=== PATIENT | male | born 1950 | race Caucasian/White ===

== ENCOUNTER 2021-06-12 09:19 | Outpatient (CLI) | payer MEDICARE, BC ==
[2021-06-12] VITALS (7 sets, daily range): BP systolic 141–164; BP diastolic 92–100
[~2021-06-12] VITALS: Ht 180.3 cm; Wt 105.2 kg
[2021-06-12] MEDS ORDERED: regadenoson 0.4mg/5ml syringe IV PRN (10:15)
[2021-06-12] MEDS ORDERED: nitroGLYCERIN 0.4mg SUBLingual tab SL PRN (10:15)
[2021-06-12] MEDS ORDERED: normal saline 500ml IV soln 500 ML IV ONE (10:15)
[2021-06-12] MEDS ORDERED: aminophylline 250mg/10ml inj. IV PRN (10:15)
== END 2021-06-12 23:59 | disposition home or self-care (01) ==
LOC: RAD 09:19
PROVIDERS: ATTEND Internal Medicine Cardiovascular Disease
DX: I08.0 Rheumatic disorders of both mitral and aortic valves (principal); R07.9 Chest pain, unspecified; I48.91 Unspecified atrial fibrillation
CPT/HCPCS: 78452; 93017; 93306; A9500; J0280; J2785; J7040

== ENCOUNTER 2021-06-19 07:05 | Day surgery (SDC) | payer MEDICARE, BC ==
[2021-06-18 15:25] LABS: BASOPHILS % (AUTO) 0.9 % (0-1); EOSINOPHILS # (AUTO) 0.1 X10'3 (0-0.9); EOSINOPHILS % (AUTO) 1.5 % (0-6); HEMATOCRIT 42.5 % (42.0-52.0); HEMOGLOBIN 14.6 g/dl (14.0-17.9); LYMPHOCYTES # (AUTO) 1.9 X10'3 (1.1-4.8); LYMPHOCYTES % (AUTO) 32.1 % (21-51); MEAN CORPUSCULAR HEMOGLOBIN 32.9 PG (27.0-31.0); MEAN CORPUSCULAR HGB CONC 34.4 g/dL (33.0-36.5); MEAN CORPUSCULAR VOLUME 95.8 FL (78-98); MONOCYTES # (AUTO) 0.5 X10'3 (0-0.9); MONOCYTES % (AUTO) 9.4 % (2-12); NEUTROPHILS # (AUTO) 3.2 X10'3 (1.8-7.7); NEUTROPHILS % (AUTO) 56.1 % (42-75); PLATELET COUNT 206 X10'3 (140-440); RED BLOOD COUNT 4.43 X10'6 (4.70-6.10); RED CELL DISTRIBUTION WIDTH 12.8 % (11.5-14.5); WHITE BLOOD COUNT 5.8 X10'3 (4.5-11.0)
[2021-06-18 15:30] LABS: ALBUMIN 3.3 G/DL (3.4-5.0); ANION GAP 9 (8-16); BLOOD UREA NITROGEN 25 MG/DL (7-18); BUN/CREATININE RATIO 22.3 (5.4-32.0); CALCIUM 8.4 MG/DL (8.5-10.1); CHLORIDE 109 MMOL/L (99-107); CREATININE 1.12 MG/DL (0.60-1.10); GLUCOSE 97 MG/DL (70-104); POTASSIUM 4.3 MMOL/L (3.5-5.1); SODIUM 146 MMOL/L (135-145); TOTAL CARBON DIOXIDE 27.6 MMOL/L (24-32); eGFR 65 ML/MIN
[2021-06-19] VITALS (15 sets, daily range): BP systolic 128–159; BP diastolic 82–112
[~2021-06-19] VITALS: Ht 185.4 cm; Wt 107.7 kg
[2021-06-19] MEDS ORDERED: morphine 10mg/ml inj. IV ONE (07:30)
[2021-06-19] MEDS ORDERED: diphenhydrAMINE 25mg capsule PO ONE (07:30)
[2021-06-19] MEDS ORDERED: MIDAZolam 1mg/ml 10ml vial IV ONE (07:30)
[2021-06-19] MEDS ORDERED: atropine 0.1mg/ml 10ml syringe IV ONE (07:30)
[2021-06-19] MEDS ORDERED: LORazepam 0.5 MG tablet PO ONE (07:30)
[2021-06-19] MEDS ORDERED: FLEC100T PO (07:32)
[2021-06-19] MEDS ORDERED: ASPI-10 PO (07:32)
[2021-06-19] MEDS ORDERED: OMEG1CAP2 PO (07:32)
[2021-06-19] MEDS ORDERED: CARV6.253 PO (07:32)
[2021-06-19] MEDS ORDERED: APIX5TAB3 PO (07:32)
[2021-06-19] MEDS ORDERED: amiodarone 150mg/dext, iso-os 100 ML IV ONE (09:20)
== END 2021-06-19 12:40 | disposition home or self-care (01) ==
LOC: SSTAY O 07:05
PROVIDERS: ATTEND Internal Medicine Cardiovascular Disease
DX: I48.0 Paroxysmal atrial fibrillation (principal); I25.10 Atherosclerotic heart disease of native coronary artery without angina pectoris; I10 Essential (primary) hypertension; E78.49 Other hyperlipidemia; G47.30 Sleep apnea, unspecified; Z79.82 Long term (current) use of aspirin; Z79.899 Other long term (current) drug therapy; Z87.891 Personal history of nicotine dependence; Z83.3 Family history of diabetes mellitus
CPT/HCPCS: 36415; 80048; 85025; 85610; 92960; 93005; 94760; 94799; J2250; J2270

== ENCOUNTER 2021-08-14 08:56 | Day surgery (SDC) | payer MEDICARE, BC ==
[2021-08-13 12:25] LABS: BASOPHILS % (AUTO) 0.8 % (0-1); EOSINOPHILS # (AUTO) 0.1 X10'3 (0-0.9); EOSINOPHILS % (AUTO) 2.1 % (0-6); HEMATOCRIT 43.2 % (42.0-52.0); HEMOGLOBIN 14.5 g/dl (14.0-17.9); LYMPHOCYTES # (AUTO) 1.5 X10'3 (1.1-4.8); LYMPHOCYTES % (AUTO) 30.6 % (21-51); MEAN CORPUSCULAR HEMOGLOBIN 32.7 PG (27.0-31.0); MEAN CORPUSCULAR HGB CONC 33.6 g/dL (33.0-36.5); MEAN CORPUSCULAR VOLUME 97.3 FL (78-98); MEAN PLATELET VOLUME 8.2 FL (7.4-10.4); MONOCYTES # (AUTO) 0.5 X10'3 (0-0.9); MONOCYTES % (AUTO) 9.7 % (2-12); NEUTROPHILS # (AUTO) 2.8 X10'3 (1.8-7.7); NEUTROPHILS % (AUTO) 56.8 % (42-75); PLATELET COUNT 145 X10'3 (140-440); RED BLOOD COUNT 4.44 X10'6 (4.70-6.10); RED CELL DISTRIBUTION WIDTH 13.4 % (11.5-14.5); WHITE BLOOD COUNT 4.9 X10'3 (4.5-11.0)
[2021-08-13 12:35] LABS: ALBUMIN 3.8 G/DL (3.4-5.0); ANION GAP 10 (8-16); BLOOD UREA NITROGEN 20 MG/DL (7-18); BUN/CREATININE RATIO 18.9 (5.4-32.0); CALCIUM 8.2 MG/DL (8.5-10.1); CHLORIDE 108 MMOL/L (99-107); CREATININE 1.06 MG/DL (0.60-1.10); GLUCOSE 81 MG/DL (70-104); POTASSIUM 4.3 MMOL/L (3.5-5.1); SODIUM 145 MMOL/L (135-145); TOTAL CARBON DIOXIDE 27.5 MMOL/L (24-32); eGFR 69 ML/MIN
[2021-08-13 12:39] LABS: PARTIAL THROMBOPLASTIN TIME 27 SECONDS (22-32)
[2021-08-14] VITALS (8 sets, daily range): BP systolic 117–176; BP diastolic 67–105
[~2021-08-14] VITALS: Ht 185.4 cm; Wt 109.9 kg
[~2021-08-14 08:56] MED LIST: APIX5TAB3 PO; ASPI-10 PO; CARV6.253 PO; FLEC100T PO; OMEG1CAP2 PO
[2021-08-14] MEDS ORDERED: normal saline 1,000 ML IV SCH (09:15)
[2021-08-14] MEDS ORDERED: LIDOcaine/PRILOcaine 5gm cream TP ONE (09:15)
[2021-08-14] MEDS ORDERED: diphenhydrAMINE 25mg capsule PO PRN (09:15)
[2021-08-14] MEDS ORDERED: LORazepam 0.5 MG tablet PO PRN (09:15)
[2021-08-14] MEDS ORDERED: verapamil 2.5 mg/ml inj IV ONE (10:00)
[2021-08-14] MEDS ORDERED: nitroGLYCERIN-Tridil 50MG/D5W 250 ML IV ONE (10:00)
[2021-08-14] MEDS ORDERED: LIDOcaine 1% (10mg/ml)w/preservative injection 20ml MDV ONE (10:01)
[2021-08-14] MEDS ORDERED: heparin 1,000unit/ml 10ml vial 10 ML ONE (10:01)
[2021-08-14] MEDS ORDERED: midazolam 1 mg/ML 2ml injection ONE (10:01)
[2021-08-14] MEDS ORDERED: iohexol 350MG/ML 100ml bottle IV ONE (10:01)
[2021-08-14] MEDS ORDERED: iohexol 350 MG/ML 50ML vial IV ONE (10:01)
[2021-08-14] MEDS ORDERED: fentaNYL/PF 50MCG/1 ML 2ML syringe ONE (10:01)
[2021-08-14 12:11] LABS: ISTAT HGB ART 13.3 g/dl (14.0-18.0); ISTAT Hct ART 39 %PCV (42-52); ISTAT O2 SATURATION ARTERIAL 98 % (95-98); ISTAT SOURCE ART
[2021-08-14 12:20] LABS: ISTAT Hct MIX 40 %PCV (42-52); ISTAT O2 SATURATION MIX VENOUS 70 % (60-80); ISTAT SOURCE BLNK
== END 2021-08-14 18:00 | disposition home or self-care (01) ==
LOC: SSTAY O 08:56
PROVIDERS: ATTEND Internal Medicine Cardiovascular Disease
DX: R94.39 Abnormal result of other cardiovascular function study (principal); R06.02 Shortness of breath; I25.10 Atherosclerotic heart disease of native coronary artery without angina pectoris; I10 Essential (primary) hypertension; E78.5 Hyperlipidemia, unspecified; I48.0 Paroxysmal atrial fibrillation; F12.90 Cannabis use, unspecified, uncomplicated; Z87.891 Personal history of nicotine dependence; Z79.01 Long term (current) use of anticoagulants; Z79.899 Other long term (current) drug therapy; Z79.82 Long term (current) use of aspirin
CPT/HCPCS: 36415; 80048; 82803; 85014; 85025; 85610; 85730; 93005; 93460; 99152; 99153; A6258; C1751; C1769; C1894; J1644; J2001; J2250; J3010; J7030; Q0163; Q9967; A4620; A5120; J3490

== ENCOUNTER 2022-02-19 07:08 | Day surgery (SDC) | payer MEDICARE, BC ==
[2022-02-18 13:41] LABS: BASOPHILS % (AUTO) 0.6 % (0-1); EOSINOPHILS # (AUTO) 0.1 X10'3 (0-0.9); EOSINOPHILS % (AUTO) 1.6 % (0-6); HEMATOCRIT 43.1 % (42.0-52.0); HEMOGLOBIN 14.6 g/dl (14.0-17.9); LYMPHOCYTES # (AUTO) 1.4 X10'3 (1.1-4.8); LYMPHOCYTES % (AUTO) 25.7 % (21-51); MEAN CORPUSCULAR HEMOGLOBIN 32.4 PG (27.0-31.0); MEAN CORPUSCULAR VOLUME 95.2 FL (78-98); MEAN PLATELET VOLUME 8.3 FL (7.4-10.4); MONOCYTES # (AUTO) 0.5 X10'3 (0-0.9); MONOCYTES % (AUTO) 8.9 % (2-12); NEUTROPHILS # (AUTO) 3.5 X10'3 (1.8-7.7); NEUTROPHILS % (AUTO) 63.2 % (42-75); PLATELET COUNT 160 X10'3 (140-440); RED BLOOD COUNT 4.52 X10'6 (4.70-6.10); RED CELL DISTRIBUTION WIDTH 13.3 % (11.5-14.5); WHITE BLOOD COUNT 5.6 X10'3 (4.5-11.0)
[2022-02-18 13:47] LABS: ALBUMIN 3.6 G/DL (3.4-5.0); ANION GAP 8 (8-16); BLOOD UREA NITROGEN 22 MG/DL (7-18); BUN/CREATININE RATIO 18.5 (5.4-32.0); CHLORIDE 107 MMOL/L (99-107); CREATININE 1.19 MG/DL (0.60-1.10); GLUCOSE 97 MG/DL (70-104); POTASSIUM 4.4 MMOL/L (3.5-5.1); SODIUM 141 MMOL/L (135-145); eGFR 61 ML/MIN
[2022-02-19] VITALS (27 sets, daily range): BP systolic 116–151; BP diastolic 79–105
[~2022-02-19] VITALS: Ht 185.4 cm; Wt 107.0 kg
[2022-02-19] MEDS ORDERED: morphine 10mg/ml inj. IV ONE (07:35)
[2022-02-19] MEDS ORDERED: atropine 0.1mg/ml 10ml syringe IV ONE (07:35)
[2022-02-19] MEDS ORDERED: LORazepam 0.5 MG tablet PO ONE (07:35)
[2022-02-19] MEDS ORDERED: amiodarone 150mg/dext, iso-os 100 ML IV ONE (07:35)
[2022-02-19] MEDS ORDERED: MIDAZolam 1mg/ml 10ml vial IV ONE (07:35)
[2022-02-19] MEDS ORDERED: diphenhydrAMINE 25mg capsule PO ONE (07:35)
--- NOTE | 2022-02-19 11:00 | NUR ---
No versed given at this time
--- NOTE | 2022-02-19 11:02 | NUR ---
no versed given at this time
== END 2022-02-19 13:25 | disposition home or self-care (01) ==
LOC: SSTAY O 07:08
PROVIDERS: ATTEND Internal Medicine Cardiovascular Disease
DX: I48.0 Paroxysmal atrial fibrillation (principal); I10 Essential (primary) hypertension; I25.10 Atherosclerotic heart disease of native coronary artery without angina pectoris; E78.49 Other hyperlipidemia; G47.30 Sleep apnea, unspecified; F12.90 Cannabis use, unspecified, uncomplicated; Z87.891 Personal history of nicotine dependence; Z79.899 Other long term (current) drug therapy; Z83.3 Family history of diabetes mellitus
CPT/HCPCS: 36415; 80048; 85025; 85610; 92960; 93005; 94799; J0282; J2250; J2274; Q0163

== ENCOUNTER 2023-10-21 10:12 | Day surgery (SDC) | payer MEDICARE, BC ==
[2023-10-20 12:45] LABS: BASOPHILS % (AUTO) 0.4 % (0-1); EOSINOPHILS # (AUTO) 0.1 X10'3 (0-0.9); EOSINOPHILS % (AUTO) 1.9 % (0-6); HEMATOCRIT 43.6 % (42.0-52.0); HEMOGLOBIN 14.9 g/dl (14.0-17.9); LYMPHOCYTES # (AUTO) 1.4 X10'3 (1.1-4.8); LYMPHOCYTES % (AUTO) 21.6 % (21-51); MEAN CORPUSCULAR HEMOGLOBIN 33.2 PG (27.0-31.0); MEAN CORPUSCULAR HGB CONC 34.1 g/dL (33.0-36.5); MEAN CORPUSCULAR VOLUME 97.3 FL (78-98); MEAN PLATELET VOLUME 7.9 FL (7.4-10.4); MONOCYTES # (AUTO) 0.4 X10'3 (0-0.9); NEUTROPHILS # (AUTO) 4.4 X10'3 (1.8-7.7); NEUTROPHILS % (AUTO) 69.1 % (42-75); PLATELET COUNT 151 X10'3 (140-440); RED BLOOD COUNT 4.48 X10'6 (4.70-6.10); RED CELL DISTRIBUTION WIDTH 13.6 % (11.5-14.5); WHITE BLOOD COUNT 6.4 X10'3 (4.5-11.0)
[2023-10-20 13:15] LABS: ALBUMIN 3.4 G/DL (3.4-5.0); ANION GAP 8 (8-16); BLOOD UREA NITROGEN 18 MG/DL (7-18); CALCIUM 8.8 MG/DL (8.5-10.1); CHLORIDE 107 MMOL/L (99-107); CREATININE 1.06 MG/DL (0.60-1.10); GLUCOSE 95 MG/DL (70-104); POTASSIUM 4.4 MMOL/L (3.5-5.1); SODIUM 141 MMOL/L (135-145); TOTAL CARBON DIOXIDE 25.7 MMOL/L (24-32); eGFR 69 ML/MIN
[2023-10-20 13:21] LABS: PROTHROMBIN TIME 10.4 SECONDS (9.0-12.0)
[~2023-10-21] VITALS: Ht 185.4 cm; Wt 110.9 kg
[2023-10-21] VITALS (23 sets, daily range): BP systolic 106–165; BP diastolic 66–116; PULSE 56–89; RESP 12; TEMP 98.2; O2SAT 95–100
[~2023-10-21 10:12] MED LIST changes: -ASPI-10 PO
[2023-10-21] MEDS ORDERED: atropine 0.1mg/ml 10ml syringe IV ONE (10:45)
[2023-10-21] MEDS ORDERED: MIDAZolam 1mg/ml 10ml vial IV ONE (10:45)
[2023-10-21] MEDS ORDERED: diphenhydrAMINE 25mg capsule PO ONE (10:45)
[2023-10-21] MEDS ORDERED: amiodarone 150mg/dext, iso-os 100 ML IV ONE (10:45)
[2023-10-21] MEDS ORDERED: morphine 10mg/ml inj. IV ONE (10:45)
[2023-10-21] MEDS ORDERED: LORazepam 0.5 MG tablet PO ONE (10:45)
[2023-10-21] MEDS ORDERED: normal saline 1000ml 1,000 ML IV SCH (10:45)
== END 2023-10-21 15:00 | disposition home or self-care (01) ==
LOC: SSTAY O 10:12
PROVIDERS: ATTEND Internal Medicine Cardiovascular Disease
DX: I48.0 Paroxysmal atrial fibrillation (principal); I49.1 Atrial premature depolarization; I10 Essential (primary) hypertension; I25.10 Atherosclerotic heart disease of native coronary artery without angina pectoris; E78.5 Hyperlipidemia, unspecified; G47.30 Sleep apnea, unspecified; Z79.01 Long term (current) use of anticoagulants; Z79.899 Other long term (current) drug therapy; Z83.3 Family history of diabetes mellitus
CPT/HCPCS: 36415; 80048; 85025; 85610; 92960; 93005; J0282; J2250; J2274; J7030; A4620